=== PATIENT | female | born 1965 | race Caucasian/White ===

== ENCOUNTER 2024-07-23 18:56 | Inpatient (IN) | payer MEDICARE, MEDICAID ==
[~2024-07-23 18:56] MED LIST: Iopamidol-370 76% 500 ML MDV (1 ML CHARGE) ONE
[2024-07-23 19:25] LABS: #Basophils 0.06 10x3/uL (0.0-0.2); %Basophils 0.5 % (0.0-1.0); %Lymphocytes 17.1 % (21.0-51.0); %Monocytes 9.9 % (0.0-10.0); %Neutrophils 71.2 % (42.0-75.0); Hematocrit 40.6 % (36.0-47.0); Hemoglobin 13.8 g/dL (12.0-16.0); Mean Corpuscular Hemoglobin 30.1 pg (27.0-31.0); Mean Corpuscular Volume 88.6 fL (78.0-98.0); Mean Platelet Volume 10.8 fL (7.4-10.4); Platelet Count 406 10x3/uL (130-400); RBC Distribution Width 12.8 % (11.5-14.5); Red Blood Cell (RBC) Count 4.58 mill/uL (4.20-5.40)
[2024-07-23 19:41] LABS: ALT (SGPT) 23 U/L (8-55); AST (SGOT) 16 U/L (5-34); Albumin 3.9 g/dL (3.5-5.0); Alkaline Phosphatase 80 U/L (40-110); Anion Gap 15 mmol/L (10-20); BUN (Urea Nitrogen) 8 mg/dL (9.8-20.1); Bilirubin, Total 0.9 mg/dL (0.2-1.2); Calc. Creatinine Clearance 0 mL/min (70-130); Calcium 9.6 mg/dL (7.8-10.44); Carbon Dioxide 24 mmol/L (22-29); Chloride 101 mmol/L (98-107); Estimated GFR 95; Globulin 3.6 g/dL (2.4-3.5); Glucose 133 mg/dL (70-105); Magnesium 2.1 mg/dL (1.6-2.6); Potassium 3.6 mmol/L (3.5-5.1); Protein, Total 7.5 g/dL (6.0-8.3); Sodium 136 mmol/L (136-145)
[2024-07-23 19:57] LABS: Troponin I 0.018 ng/mL (< 0.028)
[2024-07-23 20:07] LABS: Free T4 (Free Thyroxine) 1.03 ng/dL (0.70-1.48)
[2024-07-23] MEDS ORDERED: Lorazepam 2 MG/ML VIAL ONE (20:08)
[2024-07-23] MEDS ORDERED: Metoprolol Tartrate 5 MG (5 mL) VIAL ONE ×2 (20:08→20:22)
[2024-07-23] MEDS ORDERED: Diltiazem HCl/D5W 125 ML ONE (20:22)
[2024-07-23] MEDS ORDERED: Aspirin Chewable 81 MG TAB ONE (20:22)
[2024-07-23] MEDS ORDERED: Furosemide 40 MG (4 mL) VIAL ONE (23:50)
[2024-07-23] MEDS ORDERED: Acetaminophen 325 MG TAB PO PRN (23:58)
[2024-07-23] MEDS ORDERED: Ondansetron PF 4 MG/2 ML Vial IVP PRN (23:58)
[2024-07-23] MEDS ORDERED: Enoxaparin 40 MG (0.4 mL) SYRINGE ONE (23:58)
[2024-07-24] MEDS ORDERED: Enoxaparin 80 MG (0.8 mL) SYRINGE ONE (00:05)
[2024-07-24] MEDS ORDERED: dilTIAZem 125 MG in Sodium Chloride 0.9% 100 ML IVPB SCH ×2 (00:15→10:00)
[2024-07-24 00:39] LABS: Troponin I 0.014 ng/mL (< 0.028)
[2024-07-24 01:21] VITALS: BMI 22.9
[2024-07-24] MEDS: Amiodarone 450 MG, Admixture Fee 1 EACH in Dextrose 5% in Water 250 ML IVPB SCH (01:58)
[2024-07-24] MEDS: Amiodarone 150 MG, Admixture Fee 1 EACH in Dextrose 5% in Water 100 ML IVPB SCH (02:36)
[2024-07-24 02:49] LABS: Bilirubin Negative (Negative); Blood, Urine Negative (Negative); CAUTI Indications for Culture Dysuria,urgency,freq; Clarity Clear (Clear); Glucose, Urine (Dipstick) Normal (Negative); Ketone, Urine Negative (Negative); Leukocyte Negative Leu/uL (Negative); Nitrite 1+ (Negative); Protein, Urine (Dipstick) Negative (Neg-Trace); RBC/HPF 0-3 HPF (0-3); Specific Gravity, Urine 1.006 (1.002-1.036); Squamous Epithelial 0-3 HPF (0-3); Urobilinogen Normal mg/dL (Less than 2); WBC/HPF 0-3 HPF (0-3)
[2024-07-24 02:51] LABS: Bacteria/HPF 1+ HPF (None Seen); Urine Culture Reflex No No
[2024-07-24 02:53] LABS: Amphetamine Not Detected (NotDetected); Barbiturates Screen Not Detected (NotDetected); Benzodiazepine Screen Not Detected (NotDetected); Cocaine Metabolite Screen Not Detected (NotDetected); Methadone Not Detected (NotDetected); Methamphetamine Not Detected (NotDetected); Opiate Screen Not Detected (NotDetected); Oxycodone Screen Not Detected (NotDetected); Phencyclidine (PCP) Not Detected (NotDetected); THC/Cannabinoid Screen Not Detected (NotDetected); Tricyclic Screen Detected (NotDetected)
[2024-07-24] MEDS ORDERED: Electrolyte Replacement Protocol 1 EACH FS SCH (03:11)
[2024-07-24 03:26] LABS: #Basophils 0.05 10x3/uL (0.0-0.2); %Basophils 0.6 % (0.0-1.0); %Eosinophils 1.2 % (0.0-10.0); %Lymphocytes 18.3 % (21.0-51.0); %Monocytes 11.7 % (0.0-10.0); %Neutrophils 67.7 % (42.0-75.0); Hemoglobin 11.9 g/dL (12.0-16.0); Mean Corpuscular HGB CONC 33.1 g/dL (32.0-36.0); Mean Corpuscular Hemoglobin 29.9 pg (27.0-31.0); Mean Corpuscular Volume 90.5 fL (78.0-98.0); Mean Platelet Volume 10.7 fL (7.4-10.4); Platelet Count 315 10x3/uL (130-400); RBC Distribution Width 12.8 % (11.5-14.5); Red Blood Cell (RBC) Count 3.98 mill/uL (4.20-5.40)
[2024-07-24 04:31] LABS: Anion Gap 16 mmol/L (10-20); BUN (Urea Nitrogen) 7 mg/dL (9.8-20.1); Calc. Creatinine Clearance 107 mL/min (70-130); Calcium 8.8 mg/dL (7.8-10.44); Carbon Dioxide 19 mmol/L (22-29); Chloride 103 mmol/L (98-107); Estimated GFR 101; Glucose 120 mg/dL (70-105); Potassium 2.9 mmol/L (3.5-5.1); Sodium 135 mmol/L (136-145)
[2024-07-24] MEDS: Potassium Chloride 20 MEQ in Premix 1 BAG IVPB SCH ×2 (05:41→08:27)
[2024-07-24] MEDS ORDERED: Furosemide 20 MG (2 mL) VIAL SLOW IVP SCH (06:00)
[2024-07-24] MEDS: Potassium Chloride 20 MEQ TAB PO SCH (08:27)
[2024-07-24] MEDS: Famotidine 20 MG TAB PO SCH (08:27)
[2024-07-24] MEDS: Famotidine/PF 20 mg/2ml Vial SLOW IVP SCH (08:28)
[2024-07-24] MEDS: Magnesium 2 GM/50 ML(in water) 2 GM in Premix 1 BAG IVPB SCH (08:30)
[2024-07-24] MEDS: Amiodarone 450 MG in Dextrose 5% in Water 250 ML IVPB SCH (09:50)
[2024-07-24] MEDS: Diltiazem HCl/D5W 125 ML IVPB SCH (10:38)
[2024-07-24] MEDS: Sodium Chloride 0.9% 1,000 ML IV SCH (10:38)
[2024-07-24] MEDS ORDERED: PHENYLEPHRINE-NS 100 MCG/ML 10 ML SYRINGE ONE (10:43)
[2024-07-24] MEDS ORDERED: Midazolam HCl 2 mg/2 ml Vial ONE (10:54)
[2024-07-24] MEDS: Enoxaparin 80 MG (0.8 mL) SYRINGE SC SCH (11:06)
[2024-07-24] MEDS ORDERED: PROPOFOL 200 MG/20 ML VIAL ONE (11:07)
[2024-07-24] MEDS ORDERED: Lidocaine 1% PF 5 ML VIAL ONE (11:07)
[2024-07-24 12:10] VITALS: TEMP 98.9
[2024-07-24] MEDS ORDERED: Amitriptyline HCl 25 MG TAB PO SCH (21:00)
[2024-07-24] MEDS ORDERED: Non-Formulary Item 1 EACH (Amitriptyline Hcl [Amitriptyline Hcl] 50 MG Tablet) PO SCH (21:00)
== END 2024-07-24 14:25 | disposition home or self-care (01) | DRG 309 ==
LOC: ERS 18:56 → IMCU/EMU 23:02
PROVIDERS: ADMIT Internal Medicine; ATTEND Hospitalist
PROC: 5A2204Z Restoration of Cardiac Rhythm, Single (ICD-10-PCS; principal; 2024-07-24)
DX: I48.3 Typical atrial flutter (principal); J90 Pleural effusion, not elsewhere classified; E04.1 Nontoxic single thyroid nodule; F41.9 Anxiety disorder, unspecified; F17.210 Nicotine dependence, cigarettes, uncomplicated; Z88.8 Allergy status to other drugs, medicaments and biological substances; Z98.890 Other specified postprocedural states; Z82.49 Family history of ischemic heart disease and other diseases of the circulatory system
CPT/HCPCS: 36415; 71045; 71275; 80048; 80053; 80306; 81001; 83735; 83880; 84439; 84443; 84481; 84484; 85025; 85379; 93005; 93306; 93312; J0282; J1650; J1940; J2060; J2250; J2704; J3475; J3480; J7030; J7070; Q9967